=== PATIENT | female | born 1955 | race African-American/Black ===

== ENCOUNTER → 2016-07-07 | Outpatient (CLI) | payer OTHER ==
[~2016-07-07] MED LIST: ALBUTEROL-200 PUFFS/ IH; ATENOLOL25 M1 PO; ATENOLOL50 MG PO; BACLOFEN10 MG PO; BENZONATATE100 MG PO; DICLOFENAC SOD75 MG PO; DOXYCYCLINE HY100 M4 PO; ERYTHROMYCIN1 GM/UDP OP; ESTROPIPATE0.75 MG PO; GABAPENTIN300 MG PO; INDOMETHACIN 2525 MG PO; LASIX40 MG PO; MORPHINE SULFAT30 M3 PO; OMEPRAZOLE20 MG PO; OXYCODONE5 MG PO; SYMBICORT1 AER IH; TRAZODO50 MG PO
--- NOTE | 2016-07-15 07:38 | RADIOLOGY REPORT PS360 ---
DIG MAMM-SCREEN TYLER W/CAD CAD Screening COMPARISON: Digital mammograms 06/24/2015 and 05/15/2014 INDICATION: There is a history of breast cancer patient maternal aunt, there is been previous biopsy right breast for benign disease. TECHNIQUE: Standard CC and MLO images were obtained. R2 CAD reviewed. FINDINGS: Prominent heterogenic fibroglandular densities are seen in both breasts as noted previously. There are scattered benign-appearing calcifications throughout both breasts. These appear to be most typical of sclerosing adenosis. There is no suspicious lesion in either breast and no suspicious microcalcifications. IMPRESSION: Stable exam no suspicious lesion seen recommend yearly follow-up BI-RADS CATEGORY: 2_Benign RECOMMENDED FOLLOWUP: 12M 12 MONTH FOLLOW-UP (A letter has been sent to the patient regarding results of the study.)
== END ==
LOC: RAD 16:30
DX: Z12.31 Encounter for screening mammogram for malignant neoplasm of breast (principal)
CPT/HCPCS: G0202

== ENCOUNTER → 2017-01-16 | Emergency (ER) | payer OTHER ==
[~2017-01-16] VITALS: Ht 160 cm; Wt 113.4 kg
[~2017-01-16] MED LIST changes: +FLONASE 50 MCG16 GM; +MEDROL 4MG. DOSE4 MG PO; +TESSALON PERLE100 M1 PO; +ZITHROMAX Z PA250 MG PO
--- OUTSIDE RECORDS SUMMARY | 2017-01-16 16:33 | External Medical Summary Rpt | CCD ---
Author Author [employer] Organization [employer] Address Unknown Phone Unavailable Purpose Continuity of Care Document - through 2016
--- OUTSIDE RECORDS SUMMARY | 2017-01-16 16:33 | External Medical Summary Rpt | CCD ---
Author Author [employer] Address Unknown Phone Purpose Continuity of Care Document - through 2016 Problems Code Diagnosis DOS Provider Status M25.551 PAIN IN RIGHT HIP
--- OUTSIDE RECORDS SUMMARY | 2017-01-16 16:33 | External Medical Summary Rpt | CCD ---
Demographics Preferred Language Azeri Marital Status Unknown Spiritism Affiliation Unknown Race Unknown Ethnic Group Unknown Author Author , [employer] Organization [employer] Address Unknown Phone [email or web address] Immunization Name Date Rout CVX Reac Dose Comm Prov Is Faci e tion ent ider Refu lity Give sed n Td 03-0 9 999 Hist H149 No H149 (barry 2-19 ori lt), 97 al Info adso rmat rbed ion - Sour ce Unsp ecif ied
--- OUTSIDE RECORDS SUMMARY | 2017-01-16 16:33 | External Medical Summary Rpt | CCD ---
Demographics Preferred Language Wolof Marital Status Unknown Church Affiliation Unknown Race Unknown Ethnic Group Unknown Author Author , [employer] Organization [employer] Address Unknown Phone [email or web address] Immunization Name Date Rout CVX Reac Dose Comm Prov Is Faci e tion ent ider Refu lity Give sed n Td 03-0 9 999 Hist H149 No H149 (barry 2-19 ori lt), 97 al Info adso rmat rbed ion - Sour ce Unsp ecif ied
--- OUTSIDE RECORDS SUMMARY | 2017-01-16 16:33 | External Medical Summary Rpt | CCD ---
Author Author [employer] Address Unknown Phone [email or web address] Purpose Continuity of Care Document - through 2016 Problems Code Diagnosis DOS Provider Status M25.551 PAIN IN RIGHT HIP
--- OUTSIDE RECORDS SUMMARY | 2017-01-16 16:33 | External Medical Summary Rpt ---
Author Author [employer]E Huang, [employer] Organization [employer] Address Unknown Phone Unavailable
--- NOTE | 2017-01-16 17:35 | Urgent Treatment Center Report ---
History of Present Issue Date/Time Seen by Provider 01/16/17 8659 Visit Reason Pt arrived:Walked Presenting Problem:COUGH, CONGESTION, HEADACHE BEGAN MONDAY Location if Accident: Onset of symptoms date/time:/ or onset unknown for:MEDICAL HX UNKNOWN Have you (or family members/close friends) recently traveled outside the [place]? N If Yes, where/when: Have you had exposure to infectious disease within the past month? TB? Other? Specify: Patient state that she has been getting sick since Monday State that she has sore throat, cough and congestion along with headache. State that her throat feels raw and hurts when she swallows and she feels like she is having drainage down the back of ther throat ALLERGIES Uncoded Allergies: INGREDIENT: NO KNOWN - NO KNOWN DRUG ALLERGY (Mild, 10/18/09) Home Medications Reported Medications Omeprazole (Omeprazole 20MG) 40 MG PO DAILY Furosemide (Lasix) 40 MG PO DAILY ATENOLOL (Atenolol 50MG) 50 MG PO DAILY Albuterol (Albuterol-Hfa Inhaler) 1 PUFF IH Q6HP PRN SHORTNESS OF BREATH Indomethacin (Indomethacin 25MG. Capsule) 25 MG PO TID Gabapentin (Gabapentin 300MG) 300 MG PO BID MORPHINE SULFATE SR/ER (Morphine Sulfate ER) 30 MG PO TID History Medical History General CAD? No Angina: No [place]: No Hypertension? Yes Hyperlipidemia? No CHF? No DVT? No PE? No COPD? Yes Asthma? No Anemia? No GERD? Yes Gastric ulcers? No GI Bleed? No Hernia? No Thyroid Problems? No Hypothyroidism? No CVA? No Seizures? No Diabetes? No Renal Insuffiency? No UTI? No Stones? No BPH? No GB Disease: No Nephritic Syndrome? No Asplenia? No Hepatitis? No Sickle Cell Disease? No Arthritis? No Migraines? No Cataracts? No Glaucoma? No MRSA? No HIV? No TB? No Anxiety? No Depression? No Cancer? No Immunization HX DT/Tetanus < 1 YR AGO Surgical Hx Previous Surgery?Y LEFT BREAST BIOPSY HYSTERECTOMY Social History Smoking Hx Smoker: Never Smoker Tobacco: No Alcohol Alcohol: No Review of Systems All Other Systems Reviewed and Negative Constitutional chills, fever ENT ear pain, nose congestion, throat pain, throat swelling. Respiratory cough, denies shortness of breath, denies wheezing Physical Exam Vital Signs Vital Signs Date Time Temp Pulse Resp B/P Pulse O2 O2 Flow FiO2 Ox Delivery Rate 01/16 1709 98.8 96 20 184/87 96 General Appearance normal appearance, WD/WN, no apparent distress Ear, Nose, Throat sinus pain/drainage, nasal congestion, tonsillar swelling Respiratory Status Yes: trachea midline, chest symmetrical, non tender chest. No: respiratory distress. Lung Sounds bilateral: normal breath sounds, lungs clear. Cardiovascular normal exam, regular rate/rhythm, no peripheral edema Neurologic alert, normal exam, oriented x 3 Medical Decision Making LABS/Meds/Orders Pt receiving controlled substance in ED? No Departure Departure Time of Disposition 1750 Disposition DC Home or Self Care(routine) Clinical Impression Primary Impression: Upper respiratory infection Qualifiers: URI type: unspecified URI Qualified Code: J06.9 - Acute upper respiratory infection, unspecified Condition STABLE Patient Instructions Cough, DI for Nasal Congestion, Guaifenesin Additional Instructions * Monitor Temp. Tylenol and/or Ibuprofen as needed. ER if fever is no less than 101 despite alternating Tylenol and Ibuprofen * Encourage fluids, water, Gatorade, powerade, pedialyte if infant/toddler/or child * Warm salt water gargles for throat irritation *Warm fluids *Sore throat lozenges *Sleep elevated *humidifier or vaporizer Lots of rest Increase fluids, water, Gatorade, powerade *Flonase 2 sprays each nostril daily but may take 2-3 days to notice improvement with it *Your throat swab was sent to lab for culture. Those results area typically sent to your primary care physician. Be sure to follow up in 2-3 days if no improvement so they can review those results and treat if necessary If you dont have primary care I recommend you get one, but in the mean time you will have to return to a walk in clinic Follow up IMMEDIATELY for new or worsening of symptoms OR no noticeable improvement over the next 48-72 hours. 911 immediately for any life threatening symptoms such as chest pain or difficulty breathing Discharge Counseling Counseled pt/family regarding diagnosis, medications/RX, home care, follow up needs Prescriptions Current Visit Scripts Benzonatate (Tessalon Perle) 100 MG PO TID #15 SGL Azithromycin (Zithromycin (Z-JAMA) 250MG Tab) 250 MG PO DAILY #6 TAB TAKE TWO (2) TABLETS ON DAY 1, THEN ONE (1) TABLET DAY #2 THRU #5 Fluticasone Propionate (Flonase 50 Mcg Nasal [place]) 2 SPRAY NA DAILY #1 BOT Methylprednisolone (Medrol Dose Jama) 4 MG PO UD #1 JAMA TAKE DIRECTED ON PACKAGING at 3671
[2017-01-16 18:17] VITALS: BP 182/90
== END ==
LOC: UTC 16:25
DX: J06.9 Acute upper respiratory infection, unspecified (principal); I10 Essential (primary) hypertension; J44.9 Chronic obstructive pulmonary disease, unspecified; K21.9 Gastro-esophageal reflux disease without esophagitis; Z79.891 Long term (current) use of opiate analgesic; Z79.899 Other long term (current) drug therapy